=== PATIENT | male | born 1965 | race Hispanic/Latino ===

== ENCOUNTER 2024-09-16 14:21 | Emergency (ER) | payer OTHER ==
[~2024-09-16] VITALS: Ht 157.5 cm; Wt 83.9 kg
[2024-09-16 15:05] LABS: BASOPHILS % 0.2 % (0.0-1.0); EOSINOPHILS # (AUTO) 0.1 (0.0-0.4); EOSINOPHILS % 1.7 % (0.0-6.0); HEMATOCRIT 36.2 % (38.2-49.6); HEMOGLOBIN 12.6 g/dL (14.0-18.0); LYMPHOCYTES # (AUTO) 1.5 (1.0-3.2); LYMPHOCYTES % 27.6 % (18.0-39.1); MEAN CORPUSCULAR HEMOGLOBIN 28.8 pg (28-32); MEAN CORPUSCULAR HGB CONC 34.8 g/dL (31-35); MEAN CORPUSCULAR VOLUME 82.8 fL (81-99); MONOCYTES # (AUTO) 0.5 (0.2-0.8); MONOCYTES % 8.7 % (4.4-11.3); NEUTROPHILS # (AUTO) 3.2 (2.1-6.9); NEUTROPHILS % 61.6 % (38.7-80.0); PLATELET COUNT 267 x10e3/uL (140-360); RED BLOOD COUNT 4.37 x10e6/uL (4.3-5.7); RED CELL DISTRIBUTION WIDTH 13.1 % (11.7-14.4); WHITE BLOOD COUNT 5.26 x10e3/uL (4.8-10.8)
[2024-09-16 15:18] LABS: ALBUMIN 4.1 g/dL (3.5-5.0); ALBUMIN/GLOBULIN RATIO 1.6 (0.8-2.0); ANION GAP 14.9 mmol/L (8-16); BILIRUBIN,TOTAL 0.6 mg/dL (0.2-1.2); CREATININE, SERUM 0.81 mg/dL (0.72-1.25); POTASSIUM 3.9 mmol/L (3.5-5.1); TOTAL PROTEIN 6.6 g/dL (6.5-8.1)
[2024-09-16] MEDS ORDERED: SODIUM CHLORIDE 0.9% 100 ML ONE (15:29)
[2024-09-16] MEDS ORDERED: IOPAMIDOL 370 MG/ML 100 ML INFUS..BTL INJ ONE (15:29)
[2024-09-16] MEDS: MECLIZINE HCL 12.5 MG TAB PO ONE (15:50)
[2024-09-16] MEDS ORDERED: MECLIZINE HCL12.5 MG PO (15:58)
[2024-09-16 17:03] VITALS: PULSE 61; RESP 18; TEMP 98.1; O2SAT 98
== END 2024-09-16 17:06 | disposition home or self-care (01) ==
LOC: ER 14:30
DX: R42 Dizziness and giddiness (principal); I25.10 Atherosclerotic heart disease of native coronary artery without angina pectoris; R94.31 Abnormal electrocardiogram [ECG] [EKG]; I25.2 Old myocardial infarction; Z95.1 Presence of aortocoronary bypass graft
CPT/HCPCS: 36415; 70496; 70498; 71045; 80053; 83880; 84484; 85025; 93005; 99284; J7050; Q9967